=== PATIENT | male | born 1960 | race Caucasian/White ===

== ENCOUNTER → 2016-06-23 | Outpatient (REF) | payer SELFPAY ==
[~2016-06-23] MED LIST: /CLON1TA; /METO25TAB PO; /PANT40TA; /PANT40TA PO; /WARF2TA PO; /WARF5TA PO; ACET-654 PO; ALEV220C2 PO; ASPI32ECTA PO; ATEN25TA; BACT400T PO; CALCITRIOL PO; CELLCEPT PO; CETI10TA; COZA100T; CYCL10CAP PO; DIGO0.126 PO; DOCU100C PO; DOCU100T PO; FERR325T3 PO; FISH1000 PO; FOLI1TAB; FOLI1TAB86 PO; FURO20TA2 PO; GENGRAF PO; LASI80TA; MAGNESIUM PO; MYCO250C PO; PHOS667C PO; PRED10TA2; PRED5TAB; PRED5TAB PO; PRIL20TA2 PO; RENA800T; RENVELA PO; ROCA0.25; SENS60TA PO; SULF400T PO; TAMB100T; VITAMIN D; VITAMIN D2 PO; WARF2.5T38 PO
[2016-06-23 13:51] LABS: INR 2.95
== END ==
LOC: M LAB REF 12:46
PROVIDERS: ATTEND Internal Medicine Nephrology
DX: I48.91 Unspecified atrial fibrillation (principal)

== ENCOUNTER → 2016-08-03 | Outpatient (REF) | payer SELFPAY ==
[2016-08-03 13:48] LABS: INR 2.37
== END ==
LOC: M LAB REF 12:45
PROVIDERS: ATTEND Internal Medicine Nephrology
DX: I48.91 Unspecified atrial fibrillation (principal); Z94.0 Kidney transplant status

== ENCOUNTER → 2016-09-29 | Outpatient (REF) | payer SELFPAY ==
[2016-09-29 14:05] LABS: INR 3.34
== END ==
LOC: M LAB REF 12:50
PROVIDERS: ATTEND Internal Medicine Nephrology
DX: I48.91 Unspecified atrial fibrillation (principal); Z94.0 Kidney transplant status

== ENCOUNTER → 2016-10-06 | Outpatient (CLI) | payer SELFPAY ==
[2016-10-06 19:56] LABS: CALCIUM LEVEL 10.3 MG/DL (8.5-10.1); CREATININE FOR GFR 2.1 MG/DL (0.70-1.30); GLOMERULAR FILTRATION RATE 34.7 (>56); URIC ACID 5.9 MG/DL (3.5-7.2)
== END ==
LOC: M SMT 14:13
PROVIDERS: ATTEND Internal Medicine Cardiovascular Disease
DX: M10.9 Gout, unspecified (principal); I50.9 Heart failure, unspecified

== ENCOUNTER → 2016-11-04 | Outpatient (CLI) | payer SELFPAY ==
--- NOTE | 2016-11-04 15:52 | REP ---
Chest x-ray: Two views. History: Pneumonia. Comparison chest x-ray is from apr 02, 2015. Findings: Cardiomegaly is observed, unchanged. Cardiothoracic ratio is 17.1 cm over 33.3 cm. The aorta is somewhat tortuous and calcific. Pulmonary vasculature is cephalized and somewhat congested. Interstitial markings are increased diffusely and I cannot exclude multiple small bibasilar pulmonary nodules. There are degenerative changes in the thoracic spine. Impression: Cardiomegaly. Pulmonary vascular congestion. Increased interstitial markings, question multiple small pulmonary nodules. Signed by Jefry Mcguire MD 11/04/2016 04:02 P
[2016-11-04 21:07] LABS: INR 6.4
== END ==
LOC: M SMT 15:04
PROVIDERS: ATTEND Internal Medicine Nephrology
DX: J18.9 Pneumonia, unspecified organism (principal); I51.7 Cardiomegaly; I48.91 Unspecified atrial fibrillation; Z94.0 Kidney transplant status

== ENCOUNTER → 2016-11-12 | Outpatient (REF) | payer SELFPAY ==
[2016-11-12 13:54] LABS: INR 1.95
== END ==
LOC: M LAB REF 12:56
PROVIDERS: ATTEND Internal Medicine Nephrology
DX: I48.91 Unspecified atrial fibrillation (principal); Z94.0 Kidney transplant status

== ENCOUNTER → 2016-11-24 | Outpatient (REF) | payer SELFPAY ==
[2016-11-24 13:15] LABS: INR 2.28
== END ==
LOC: M LAB REF 12:56
PROVIDERS: ATTEND Internal Medicine Nephrology
DX: I48.2 Chronic atrial fibrillation (principal); Z51.81 Encounter for therapeutic drug level monitoring; Z79.01 Long term (current) use of anticoagulants

== ENCOUNTER → 2016-12-22 | Outpatient (REF) | payer SELFPAY ==
[2016-12-22 13:38] LABS: INR 2.39
== END ==
LOC: M LAB REF 13:11
PROVIDERS: ATTEND Internal Medicine Nephrology
DX: I48.2 Chronic atrial fibrillation (principal); Z51.81 Encounter for therapeutic drug level monitoring; Z79.01 Long term (current) use of anticoagulants

== ENCOUNTER → 2017-02-23 | Outpatient (REF) | payer SELFPAY | LOC: M LAB REF 14:58 | PROVIDERS: ATTEND Internal Medicine Nephrology | DX: I48.2 Chronic atrial fibrillation (principal); Z48.22 Encounter for aftercare following kidney transplant; Z51.81 Encounter for therapeutic drug level monitoring; Z79.899 Other long term (current) drug therapy ==

== ENCOUNTER → 2017-02-23 | Outpatient (CLI) | payer SELFPAY ==
--- NOTE | 2017-02-23 17:11 | REP ---
Clinical: Chronic shortness of breath. Technique PA and lateral. Comparison: 11/04/2016. Findings: Mediastinum and cardiac silhouette are stable. Cardiomegaly is again suggested. Chronic pulmonary vascular congestion cannot be excluded. Lung motta demonstrate chronic interstitial changes without focal consolidation, effusion, or pneumothorax. Skeletal structures are intact. Impression: Cardiomegaly and chronic appearing changes. No acute cardiopulmonary process. Signed by Alvaro Lee MD 02/23/2017 05:02 P
[2017-02-23 19:31] LABS: INR 2.11
== END ==
LOC: M ADAMS 16:37
PROVIDERS: ATTEND Internal Medicine Nephrology
DX: I48.91 Unspecified atrial fibrillation (principal); I51.7 Cardiomegaly; Z94.0 Kidney transplant status

== ENCOUNTER → 2017-05-18 | Outpatient (REF) | payer SELFPAY ==
[2017-05-18 13:11] LABS: INR 1.6
== END ==
LOC: M LAB REF 12:46
PROVIDERS: ATTEND Internal Medicine Nephrology
DX: Z94.0 Kidney transplant status (principal); I48.91 Unspecified atrial fibrillation

== ENCOUNTER → 2017-06-29 | Outpatient (REF) | payer SELFPAY ==
[2017-06-29 13:20] LABS: INR 2.77; PROTHROMBIN TIME 30.4 SECONDS (12.4-14.5)
== END ==
LOC: M LAB REF 12:51
DX: Z94.0 Kidney transplant status (principal); I48.91 Unspecified atrial fibrillation

== ENCOUNTER → 2017-07-06 | Outpatient (CLI) | payer SELFPAY | LOC: M SLEEP 19:51 | DX: G47.33 Obstructive sleep apnea (adult) (pediatric) (principal) | CPT/HCPCS: 95810 ==

== ENCOUNTER 2017-07-16 10:05 | Inpatient (IN) | payer SELFPAY ==
[~2017-07-16 10:05] MED LIST changes: -/CLON1TA; -/METO25TAB PO; -/PANT40TA; -/PANT40TA PO; -/WARF2TA PO; -/WARF5TA PO; -ACET-654 PO; -ALEV220C2 PO; -ASPI32ECTA PO; -ATEN25TA; -BACT400T PO; -CALCITRIOL PO; -CELLCEPT PO; -CETI10TA; -COZA100T; -CYCL10CAP PO; -DIGO0.126 PO; -DOCU100C PO; -DOCU100T PO; -FERR325T3 PO; -FISH1000 PO; -FOLI1TAB; -FOLI1TAB86 PO; -FURO20TA2 PO; -GENGRAF PO; -LASI80TA; -MAGNESIUM PO; -MYCO250C PO; -PHOS667C PO; -PRED10TA2; -PRED5TAB; -PRED5TAB PO; -PRIL20TA2 PO; -RENA800T; -RENVELA PO; -ROCA0.25; -SENS60TA PO; -SULF400T PO; -TAMB100T; -VITAMIN D; -VITAMIN D2 PO; -WARF2.5T38 PO; +predniSONE 2.5 MG TAB PO
[2017-07-16] MEDS ORDERED: NS 500 ML IV (10:45)
[2017-07-16 11:01] LABS: BASO % 0.6 % (0.0-1.0); EOS # 0.2 10^3/uL (0.0-0.50); EOS % 2.4 % (0.0-3.0); HEMATOCRIT 46.8 % (42.0-52.0); HEMOGLOBIN 15.5 g/dl (14.0-18.0); IMMATURE GRANULOCYTE % 0.3 % (0-0); LYMPH # 0.7 10^3/uL (1.5-4.5); LYMPH % 11.2 % (24.0-44.0); MEAN CORPUSCULAR HEMOGLOBIN 29.4 pg (27.0-33.0); MEAN CORPUSCULAR HGB CONC 33.1 g/dl (32.0-36.5); MEAN CORPUSCULAR VOLUME 88.8 fl (80.0-96.0); MONO # 0.7 10^3/uL (0.0-0.8); MONO % 10.5 % (0.0-5.0); NEUTROPHILS # 4.8 10^3/uL (1.8-7.7); PLATELET COUNT, AUTOMATED 149 10^3/uL (150-450); RED BLOOD COUNT 5.27 10^6/uL (4.30-6.10); RED CELL DISTRIBUTION WIDTH 15.1 % (11.5-14.5); WHITE BLOOD COUNT 6.4 10^3/uL (4.0-10.0)
[2017-07-16 11:12] LABS: INR 2.55; PROTHROMBIN TIME 28.5 SECONDS (12.4-14.5)
[2017-07-16 11:13] LABS: PARTIAL THROMBOPLASTIN TIME 48.5 SECONDS (26.8-37.9)
[2017-07-16 11:21] LABS: AMMONIA 71 uMOL/L (<32)
[2017-07-16 11:27] LABS: ALBUMIN 3.9 GM/DL (3.2-5.2); ALBUMIN/GLOBULIN RATIO 1.03 (1.00-1.93); ALKALINE PHOSPHATASE 166 U/L (45-117); ALT/SGPT 16 U/L (12-78); AMYLASE 52 U/L (25-115); ANION GAP 12 MEQ/L (8-16); AST/SGOT 29 U/L (7-37); BILIRUBIN,DIRECT 2.8 MG/DL (0.0-0.2); BILIRUBIN,TOTAL 4.8 MG/DL (0.2-1.0); BLOOD UREA NITROGEN 71 MG/DL (7-18); CALCIUM LEVEL 9.7 MG/DL (8.5-10.1); CARBON DIOXIDE LEVEL 23 MEQ/L (21-32); CHLORIDE LEVEL 107 MEQ/L (98-107); CPK CREATINE PHOSPHOKINASE 128 U/L (39-308); CREATININE FOR GFR 2.49 MG/DL (0.70-1.30); GLOMERULAR FILTRATION RATE 28.5 (>56); GLUCOSE, FASTING 126 MG/DL (70-100); LIPASE 153 U/L (73-393); POTASSIUM SERUM 3.9 MEQ/L (3.5-5.1); SODIUM LEVEL 142 MEQ/L (136-145); TOTAL PROTEIN 7.7 GM/DL (6.4-8.2); TROPONIN I 0.12 NG/ML (< 0.10)
[2017-07-16 11:28] LABS: CK-MB VALUE MASS 2.8 NG/ML (0.0-3.6); MB/CK RELATIVE INDEX 2.18 (< OR =4)
[2017-07-16 11:37] LABS: LACTIC ACID SEPSIS PROTOCOL 2.4 MMOL/L (0.4-2.0)
[2017-07-16 11:40] LABS: KETONE, URINE AUTO RFX NEGATIVE (NEGATIVE); LEUKOCYTE ESTERASE UR AUTO RFX NEGATIVE (NEGATIVE); NITRITE, URINE AUTO RFX NEGATIVE (NEGATIVE); RBC, URINE AUTO RFX 1 /HPF (0-3); SPECIFIC GRAVITY UR AUTO RFX 1.009 (1.002-1.035); SQUAM EPITHELIAL CELL UR AURFX 0 /HPF (0-6); WBC, URINE AUTO RFX 0 /HPF (0-3)
[2017-07-16] MEDS: NS 1,000 ML IV (11:45)
[2017-07-16 12:08] LABS: DIGOXIN LEVEL 0.7 NG/ML (0.5-2.0)
[2017-07-16] MEDS ORDERED: ONDANSETRON 4MG/2ML VIAL (J2405) IV (14:00)
[2017-07-16 14:17] LABS: NT-PRO BNP 4153 PG/ML (<125)
[2017-07-16 17:26] LABS: CK-MB VALUE MASS 3.2 NG/ML (0.0-3.6); CPK CREATINE PHOSPHOKINASE 106 U/L (39-308); MB/CK RELATIVE INDEX 3.01 (< OR =4); TROPONIN I 0.12 NG/ML (< 0.10)
[2017-07-16] MEDS: LACTULOSE 20 GM/30 ML SYRUP UD PO ×2 (18:30→18:31)
[2017-07-16] MEDS: WARFARIN SOD 2.5 MG TAB PO (18:31)
[2017-07-16] MEDS: ASPIRIN 81 MG ENTERIC TAB PO (18:31)
[2017-07-16] MEDS: FUROSEMIDE 40 MG/4 ML VIAL (J1940) IV (19:47)
[2017-07-16] MEDS: CALCITRIOL 0.25 MCG CAP (S0169) PO (21:42)
[2017-07-16] MEDS: MYCOPHENOLATE MOFETIL 250 MG CAP (J7517) PO (21:43)
[2017-07-16] MEDS: PIPERACILLIN/TAZOBACTAM SOD 2.25 GM in APPROPRIATE DILUENT 1 EA IV (21:59)
[2017-07-16 23:43] LABS: CK-MB VALUE MASS 2.9 NG/ML (0.0-3.6); CPK CREATINE PHOSPHOKINASE 100 U/L (39-308); TROPONIN I 0.18 NG/ML (< 0.10)
[2017-07-17] MEDS: LACTULOSE 20 GM/30 ML SYRUP UD PO ×4 (00:02→17:01)
[2017-07-17] MEDS: FUROSEMIDE 40 MG/4 ML VIAL (J1940) IV ×2 (02:41→08:55)
[2017-07-17] MEDS: PIPERACILLIN/TAZOBACTAM SOD 2.25 GM in APPROPRIATE DILUENT 1 EA IV ×4 (02:46→20:11)
[2017-07-17 05:19] LABS: BASO % 0.4 % (0.0-1.0); EOS # 0.2 10^3/uL (0.0-0.50); EOS % 2.3 % (0.0-3.0); HEMATOCRIT 43.4 % (42.0-52.0); HEMOGLOBIN 14.2 g/dl (14.0-18.0); IMMATURE GRANULOCYTE % 0.1 % (0-0); LYMPH # 0.7 10^3/uL (1.5-4.5); MEAN CORPUSCULAR HEMOGLOBIN 28.9 pg (27.0-33.0); MEAN CORPUSCULAR HGB CONC 32.7 g/dl (32.0-36.5); MEAN CORPUSCULAR VOLUME 88.2 fl (80.0-96.0); MONO # 0.6 10^3/uL (0.0-0.8); MONO % 8.9 % (0.0-5.0); NEUTROPHILS # 5.5 10^3/uL (1.8-7.7); NEUTROPHILS % 78.3 % (36.0-66.0); PLATELET COUNT, AUTOMATED 146 10^3/uL (150-450); RED BLOOD COUNT 4.92 10^6/uL (4.30-6.10); RED CELL DISTRIBUTION WIDTH 15.2 % (11.5-14.5)
[2017-07-17 05:35] LABS: AMMONIA 121 uMOL/L (<32)
[2017-07-17 05:38] LABS: ALBUMIN 3.6 GM/DL (3.2-5.2); ALBUMIN/GLOBULIN RATIO 0.88 (1.00-1.93); ALKALINE PHOSPHATASE 154 U/L (45-117); ALT/SGPT 16 U/L (12-78); ANION GAP 12 MEQ/L (8-16); AST/SGOT 21 U/L (7-37); BILIRUBIN,TOTAL 4.8 MG/DL (0.2-1.0); BLOOD UREA NITROGEN 66 MG/DL (7-18); CALCIUM LEVEL 9.7 MG/DL (8.5-10.1); CARBON DIOXIDE LEVEL 20 MEQ/L (21-32); CHLORIDE LEVEL 109 MEQ/L (98-107); CREATININE FOR GFR 2.42 MG/DL (0.70-1.30); GLOMERULAR FILTRATION RATE 29.5 (>56); GLUCOSE, FASTING 101 MG/DL (70-100); POTASSIUM SERUM 3.9 MEQ/L (3.5-5.1); SODIUM LEVEL 141 MEQ/L (136-145); TOTAL PROTEIN 7.7 GM/DL (6.4-8.2)
[2017-07-17 05:41] LABS: INR 2.47; PROTHROMBIN TIME 27.7 SECONDS (12.4-14.5)
[2017-07-17 05:53] LABS: URIC ACID 7.6 MG/DL (3.5-7.2)
[2017-07-17] MEDS: MYCOPHENOLATE MOFETIL 250 MG CAP (J7517) PO ×2 (08:54→20:10)
[2017-07-17] MEDS: PANTOPRAZOLE 20 MG TAB PO (08:54)
[2017-07-17] MEDS: ASPIRIN 81 MG ENTERIC TAB PO (08:54)
[2017-07-17] MEDS: predniSONE 5 MG TAB PO (08:55)
[2017-07-17] MEDS: FEBUXOSTAT 40 MG TABLET (ULORIC) PO ×2 (09:54→10:04)
[2017-07-17] MEDS: rifAXIMin 550 MG TAB (XIFAXAN) PO ×2 (11:59→20:10)
[2017-07-17] MEDS: NEORAL 25 MG CAP (J7515) PO ×2 (11:59→20:10)
[2017-07-17] MEDS ORDERED: FUROSEMIDE 20 MG TAB PO (17:00)
[2017-07-17] MEDS: WARFARIN SOD 5 MG TAB PO (17:01)
[2017-07-17] MEDS: CALCITRIOL 0.25 MCG CAP (S0169) PO (20:10)
[2017-07-18] MEDS: LACTULOSE 20 GM/30 ML SYRUP UD PO ×3 (00:44→11:22)
[2017-07-18] MEDS: PIPERACILLIN/TAZOBACTAM SOD 2.25 GM in APPROPRIATE DILUENT 1 EA IV ×2 (02:01→08:39)
[2017-07-18 05:12] LABS: BASO % 0.6 % (0.0-1.0); EOS # 0.2 10^3/uL (0.0-0.50); EOS % 3.3 % (0.0-3.0); HEMATOCRIT 45.8 % (42.0-52.0); IMMATURE GRANULOCYTE % 0.3 % (0-0); LYMPH # 0.8 10^3/uL (1.5-4.5); LYMPH % 11.8 % (24.0-44.0); MEAN CORPUSCULAR HGB CONC 32.8 g/dl (32.0-36.5); MEAN CORPUSCULAR VOLUME 88.4 fl (80.0-96.0); MONO # 0.7 10^3/uL (0.0-0.8); MONO % 10.8 % (0.0-5.0); NEUTROPHILS % 73.2 % (36.0-66.0); PLATELET COUNT, AUTOMATED 159 10^3/uL (150-450); RED BLOOD COUNT 5.18 10^6/uL (4.30-6.10); RED CELL DISTRIBUTION WIDTH 15.3 % (11.5-14.5); WHITE BLOOD COUNT 6.9 10^3/uL (4.0-10.0)
[2017-07-18 05:27] LABS: AMMONIA 22 uMOL/L (<32)
[2017-07-18 05:27] LABS: INR 2.48; PROTHROMBIN TIME 27.8 SECONDS (12.4-14.5)
[2017-07-18 05:30] LABS: ALBUMIN 3.8 GM/DL (3.2-5.2); ALBUMIN/GLOBULIN RATIO 0.86 (1.00-1.93); ALKALINE PHOSPHATASE 156 U/L (45-117); ALT/SGPT 15 U/L (12-78); ANION GAP 11 MEQ/L (8-16); AST/SGOT 25 U/L (7-37); BILIRUBIN,TOTAL 5.6 MG/DL (0.2-1.0); BLOOD UREA NITROGEN 62 MG/DL (7-18); CALCIUM LEVEL 10.3 MG/DL (8.5-10.1); CARBON DIOXIDE LEVEL 23 MEQ/L (21-32); CHLORIDE LEVEL 108 MEQ/L (98-107); CREATININE FOR GFR 2.53 MG/DL (0.70-1.30); GLUCOSE, FASTING 122 MG/DL (70-100); POTASSIUM SERUM 3.8 MEQ/L (3.5-5.1); SODIUM LEVEL 142 MEQ/L (136-145); TOTAL PROTEIN 8.2 GM/DL (6.4-8.2)
[2017-07-18] MEDS: PANTOPRAZOLE 20 MG TAB PO (08:40)
[2017-07-18] MEDS: NEORAL 25 MG CAP (J7515) PO (08:40)
[2017-07-18] MEDS: MYCOPHENOLATE MOFETIL 250 MG CAP (J7517) PO (08:40)
[2017-07-18] MEDS: ASPIRIN 81 MG ENTERIC TAB PO (08:41)
[2017-07-18] MEDS: rifAXIMin 550 MG TAB (XIFAXAN) PO (08:41)
[2017-07-18] MEDS: DIGOXIN 0.25 MG TAB PO (08:41)
[2017-07-18] MEDS: ALLOPURINOL 300 MG TAB PO (08:41)
[2017-07-18] MEDS: predniSONE 5 MG TAB PO (08:41)
[2017-07-18 10:53] LABS: HEPATITIS B SURFACE ANTIGEN NEGATIVE (NEGATIVE)
[2017-07-18 11:16] LABS: HEPATITIS B CORE ANTIBODY IGM NEGATIVE (NEGATIVE)
[2017-07-18 11:18] LABS: HEPATITIS A ANTIBODY IGM NEGATIVE (NEGATIVE); HIV 1&2 SCREEN CENTAUR NEGATIVE (NEGATIVE)
[2017-07-20 14:13] LABS: JC VIRUS DNA PCR WHOLE BLOOD Negative (Negative)
[2017-07-21 00:07] LABS: ANA (HEP2) Negative (.); ANCA-ATYPICAL <1:20 titer (Neg:<1:20); ANTI-MITOCHONDRIAL ANTIBODY 7.4 Units (0.0-20.0); ANTINUCLEAR ANTIBODIES DIRECT Negative (Negative); CYTOPLASMIC NEUTROP AB ANCA-C <1:20 titer (Neg:<1:20); PERINUCLEAR AB ANCA-P <1:20 titer (Neg:<1:20)
[2017-07-21 00:07] LABS: CYCLOSPORINE LABCORP 181 ng/mL (100-400)
== END 2017-07-18 13:00 | disposition home or self-care (01) | DRG 279 ==
LOC: M ED 10:05 → M ED INP 14:10 → M PCU 17:45
DX: K72.90 Hepatic failure, unspecified without coma (principal); I50.33 Acute on chronic diastolic (congestive) heart failure; N17.9 Acute kidney failure, unspecified; E87.2 Acidosis; N18.3 Chronic kidney disease, stage 3 (moderate); I50.810 Right heart failure, unspecified; I13.0 Hypertensive heart and chronic kidney disease with heart failure and stage 1 through stage 4 chronic kidney disease, or unspecified chronic kidney disease; I48.2 Chronic atrial fibrillation; N02.8 Recurrent and persistent hematuria with other morphologic changes; Z94.0 Kidney transplant status; I25.10 Atherosclerotic heart disease of native coronary artery without angina pectoris; E80.6 Other disorders of bilirubin metabolism; K21.9 Gastro-esophageal reflux disease without esophagitis; M10.9 Gout, unspecified; Z79.01 Long term (current) use of anticoagulants; Z88.8 Allergy status to other drugs, medicaments and biological substances; Z79.82 Long term (current) use of aspirin; Z79.52 Long term (current) use of systemic steroids; Z79.899 Other long term (current) drug therapy; Z86.73 Personal history of transient ischemic attack (TIA), and cerebral infarction without residual deficits

== ENCOUNTER → 2017-07-22 | Outpatient (REF) | payer SELFPAY ==
[2017-07-22 14:08] LABS: INR 3.14; PROTHROMBIN TIME 33.7 SECONDS (12.4-14.5)
[2017-07-22 14:10] LABS: ALBUMIN 3.9 GM/DL (3.2-5.2); ALBUMIN/GLOBULIN RATIO 1.05 (1.00-1.93); ALKALINE PHOSPHATASE 166 U/L (45-117); ALT/SGPT 20 U/L (12-78); AST/SGOT 27 U/L (7-37); BILIRUBIN,DIRECT 2.6 MG/DL (0.0-0.2); BILIRUBIN,TOTAL 3.9 MG/DL (0.2-1.0); TOTAL PROTEIN 7.6 GM/DL (6.4-8.2)
== END ==
LOC: M LAB REF 13:12
DX: Z94.0 Kidney transplant status (principal); I48.91 Unspecified atrial fibrillation; N18.3 Chronic kidney disease, stage 3 (moderate)

== ENCOUNTER → 2017-08-01 | Outpatient (REF) | payer SELFPAY ==
[2017-08-01 17:28] LABS: INR 1.98; PROTHROMBIN TIME 23.1 SECONDS (12.4-14.5)
[2017-08-01 17:56] LABS: ALBUMIN/GLOBULIN RATIO 1.05 (1.00-1.93); ALKALINE PHOSPHATASE 173 U/L (45-117); ALT/SGPT 19 U/L (12-78); AST/SGOT 26 U/L (7-37); BILIRUBIN,DIRECT 2.8 MG/DL (0.0-0.2); BILIRUBIN,TOTAL 4.7 MG/DL (0.2-1.0); TOTAL PROTEIN 7.8 GM/DL (6.4-8.2)
== END ==
LOC: M LAB REF 16:42
DX: Z94.0 Kidney transplant status (principal); I48.91 Unspecified atrial fibrillation; N18.3 Chronic kidney disease, stage 3 (moderate)

== ENCOUNTER → 2017-10-10 | Outpatient (REF) | payer MEDICARE, SELFPAY ==
[2017-10-10 17:17] LABS: TOTAL VOLUME, URINE 510 ML
[2017-10-10 18:15] LABS: ALBUMIN 3.8 GM/DL (3.2-5.2); ANION GAP 12 MEQ/L (8-16); BLOOD UREA NITROGEN 54 MG/DL (7-18); CALCIUM LEVEL 9.8 MG/DL (8.5-10.1); CARBON DIOXIDE LEVEL 26 MEQ/L (21-32); CHLORIDE LEVEL 103 MEQ/L (98-107); CREATININE FOR GFR 3.29 MG/DL (0.70-1.30); GLOMERULAR FILTRATION RATE 20.6 (>56); GLUCOSE, FASTING 132 MG/DL (70-100); PHOSPHORUS LEVEL 3.6 MG/DL (2.5-4.9); POTASSIUM SERUM 4.1 MEQ/L (3.5-5.1); SODIUM LEVEL 141 MEQ/L (136-145)
[2017-10-11 02:48] LABS: CREATININE CLEARANCE, URINE 31.1 ML/MIN (85-125); CREATININE, SERUM 3.3 MG/DL (0.6-1.3)
== END ==
LOC: M LAB REF 17:02
DX: N17.9 Acute kidney failure, unspecified (principal); Z94.0 Kidney transplant status
CPT/HCPCS: 82575

== ENCOUNTER → 2017-10-25 | Outpatient (CLI) | payer MEDICARE | LOC: M RAD 07:47 | DX: I87.311 Chronic venous hypertension (idiopathic) with ulcer of right lower extremity (principal) | CPT/HCPCS: 93971 ==

== ENCOUNTER → 2017-12-12 | Outpatient (CLI) | payer MEDICARE | LOC: M RAD 09:57 | DX: Z01.818 Encounter for other preprocedural examination (principal); N18.6 End stage renal disease (principal); Z99.2 Dependence on renal dialysis | CPT/HCPCS: G0365 ==

== ENCOUNTER → 2018-01-12 | Outpatient (CLI) | payer MEDICARE ==
[~2018-01-12] MED LIST changes: +ISOVUE-300 61% 50ML VIAL (Q9967) As Ordered; +MIDAZOLAM INJ 2 MG/2 ML VIAL (J2250) As Ordered; +fentaNYL 100 MCG/2 ML INJECTION (J3010) As Ordered; -predniSONE 2.5 MG TAB PO
== END | disposition home or self-care (01) ==
LOC: M IRPRO 08:04
DX: T82.858A Stenosis of other vascular prosthetic devices, implants and grafts, initial encounter (principal); N18.6 End stage renal disease
CPT/HCPCS: 36902

== ENCOUNTER 2018-01-16 20:01 | Observation (INO) | payer MEDICARE ==
[2018-01-16] MEDS: IPRATROPIUM 0.5MG/ALBUTEROL 2.5MG INH SOL UD 3ML (DUONEB)(J7620) NEB ×2 (21:18)
[2018-01-16 21:41] LABS: BASO % 0.5 % (0.0-1.0); EOS # 0.3 10^3/uL (0.0-0.50); EOS % 3.4 % (0.0-3.0); HEMATOCRIT 36.4 % (42.0-52.0); IMMATURE GRANULOCYTE % 0.4 % (0-3.0); LYMPH # 0.7 10^3/uL (1.5-4.5); LYMPH % 9.3 % (24.0-44.0); MEAN CORPUSCULAR HEMOGLOBIN 30.3 pg (27.0-33.0); MEAN CORPUSCULAR VOLUME 91.9 fl (80.0-96.0); MONO # 0.8 10^3/uL (0.0-0.8); MONO % 11.1 % (0.0-5.0); NEUTROPHILS # 5.7 10^3/uL (1.8-7.7); NEUTROPHILS % 75.3 % (36.0-66.0); PLATELET COUNT, AUTOMATED 214 10^3/uL (150-450); RED BLOOD COUNT 3.96 10^6/uL (4.30-6.10); RED CELL DISTRIBUTION WIDTH 15.3 % (11.5-14.5); WHITE BLOOD COUNT 7.6 10^3/uL (4.0-10.0)
[2018-01-16 21:43] LABS: VENOUS BASE EXCESS 3.2 (-2.0-2.0); VENOUS HCO3 26.7 MEQ/L (23.0-27.0); VENOUS O2 SATURATION 78.4 % (60.0-80.0); VENOUS PARTIAL PRESSURE CO2 36.9 mmHg (38.0-50.0); VENOUS PARTIAL PRESSURE O2 43.7 mmHg (30.0-50.0); VENOUS PH 7.477 UNITS (7.330-7.430); VENOUS STANDARD HCO3 26.9 MEQ/L; VENOUS TOTAL CO2 27.8 MEQ/L (24.0-28.0)
[2018-01-16 21:49] LABS: INR 2.03; PROTHROMBIN TIME 23.3 SECONDS (12.1-14.4)
[2018-01-16 22:06] LABS: ANION GAP 12 MEQ/L (8-16); BLOOD UREA NITROGEN 31 MG/DL (7-18); CALCIUM LEVEL 8.6 MG/DL (8.5-10.1); CARBON DIOXIDE LEVEL 26 MEQ/L (21-32); CHLORIDE LEVEL 100 MEQ/L (98-107); CPK CREATINE PHOSPHOKINASE 129 U/L (39-308); GLOMERULAR FILTRATION RATE 16.4 (>56); GLUCOSE, FASTING 100 MG/DL (70-100); POTASSIUM SERUM 3.6 MEQ/L (3.5-5.1); SODIUM LEVEL 138 MEQ/L (136-145); TROPONIN I 0.18 NG/ML (< 0.10)
[2018-01-16 22:17] LABS: CK-MB VALUE MASS 2.7 NG/ML (<3.6); DIGOXIN LEVEL 0.4 NG/ML (0.5-2.0); MB/CK RELATIVE INDEX 2.09 (< OR =4); NT-PRO BNP 7285 PG/ML (<125)
[2018-01-17 00:49] LABS: CK-MB VALUE MASS 2.4 NG/ML (<3.6); CPK CREATINE PHOSPHOKINASE 120 U/L (39-308); TROPONIN I 0.18 NG/ML (< 0.10)
[2018-01-17] MEDS ORDERED: LACTULOSE 20 GM/30 ML SYRUP UD PO ×2 (03:00)
[2018-01-17] MEDS ORDERED: IPRATROPIUM 0.5MG/ALBUTEROL 2.5MG INH SOL UD 3ML (DUONEB)(J7620) NEB ×2 (03:00)
[2018-01-17] MEDS ORDERED: PHYTONADIONE 5 MG TAB PO ×2 (03:00)
[2018-01-17 04:06] LABS: ALBUMIN 3.3 GM/DL (3.2-5.2); ALBUMIN/GLOBULIN RATIO 0.63 (1.00-1.93); ALKALINE PHOSPHATASE 217 U/L (45-117); ALT/SGPT 24 U/L (12-78); AST/SGOT 24 U/L (7-37); BILIRUBIN,DIRECT 1.2 MG/DL (0.0-0.2); BILIRUBIN,TOTAL 2.4 MG/DL (0.2-1.0); DIGOXIN LEVEL 0.4 NG/ML (0.5-2.0); TOTAL PROTEIN 8.5 GM/DL (6.4-8.2)
[2018-01-17] MEDS: ACETAMINOPHEN TAB 650MG DOSE (2X325MG) PO ×4 (04:28→20:25)
[2018-01-17] MEDS: FEBUXOSTAT 40 MG TABLET (ULORIC) PO ×2 (08:14)
[2018-01-17] MEDS: predniSONE 5 MG TAB PO ×2 (08:14)
[2018-01-17] MEDS: FOLIC ACID 1 MG TAB PO ×2 (08:14)
[2018-01-17] MEDS: LANTHANUM CARBONATE 500 MG CHEW TABLET PO ×6 (08:14→16:49)
[2018-01-17] MEDS: MYCOPHENOLATE MOFETIL 250 MG CAP (J7517) PO ×4 (08:15→20:25)
[2018-01-17] MEDS: ASPIRIN 81 MG ENTERIC TAB PO ×2 (08:15)
[2018-01-17 08:44] LABS: HEMATOCRIT 34.7 % (42.0-52.0); HEMOGLOBIN 11.3 g/dl (13.5-17.5); MEAN CORPUSCULAR HEMOGLOBIN 30.1 pg (27.0-33.0); MEAN CORPUSCULAR HGB CONC 32.6 g/dl (32.0-36.5); MEAN CORPUSCULAR VOLUME 92.5 fl (80.0-96.0); PLATELET COUNT, AUTOMATED 214 10^3/uL (150-450); RED BLOOD COUNT 3.75 10^6/uL (4.30-6.10); RED CELL DISTRIBUTION WIDTH 15.4 % (11.5-14.5); WHITE BLOOD COUNT 6.9 10^3/uL (4.0-10.0)
[2018-01-17 09:08] LABS: LDH LACTATE DEHYDROGENASE 343 U/L (87-241)
[2018-01-17 09:21] LABS: CPK CREATINE PHOSPHOKINASE 122 U/L (39-308)
[2018-01-17 09:52] LABS: CK-MB VALUE MASS 2.3 NG/ML (<3.6); MB/CK RELATIVE INDEX 1.88 (< OR =4); TROPONIN I 0.18 NG/ML (< 0.10)
[2018-01-17] MEDS: HEPARIN 1,000 UNITS/ML 10ML VIAL (FOR RADIOLOGY& DIALYSIS ONLY) XX ×2 (13:45)
[2018-01-17] MEDS: HEPARIN 1,000 UNITS/ML 10ML VIAL (FOR RADIOLOGY& DIALYSIS ONLY) IV ×2 (13:45)
[2018-01-17] MEDS: WARFARIN SOD 5 MG TAB PO ×2 (16:52)
[2018-01-18] MEDS: ACETAMINOPHEN TAB 650MG DOSE (2X325MG) PO ×2 (02:12)
[2018-01-18] MEDS: FEBUXOSTAT 40 MG TABLET (ULORIC) PO ×2 (06:35)
[2018-01-18] MEDS: MYCOPHENOLATE MOFETIL 250 MG CAP (J7517) PO ×4 (06:35→21:41)
[2018-01-18] MEDS: FOLIC ACID 1 MG TAB PO ×2 (06:35)
[2018-01-18] MEDS: ASPIRIN 81 MG ENTERIC TAB PO ×2 (06:35)
[2018-01-18 07:08] LABS: INR 2.13; PROTHROMBIN TIME 24.3 SECONDS (12.1-14.4)
[2018-01-18 07:17] LABS: ALBUMIN 3.1 GM/DL (3.2-5.2); ALBUMIN/GLOBULIN RATIO 0.65 (1.00-1.93); ALKALINE PHOSPHATASE 201 U/L (45-117); ALT/SGPT 22 U/L (12-78); ANION GAP 14 MEQ/L (8-16); AST/SGOT 22 U/L (7-37); BILIRUBIN,TOTAL 1.7 MG/DL (0.2-1.0); BLOOD UREA NITROGEN 52 MG/DL (7-18); CALCIUM LEVEL 7.9 MG/DL (8.5-10.1); CARBON DIOXIDE LEVEL 21 MEQ/L (21-32); CHLORIDE LEVEL 98 MEQ/L (98-107); CREATININE FOR GFR 6.06 MG/DL (0.70-1.30); GLOMERULAR FILTRATION RATE 10.2 (>56); GLUCOSE, FASTING 104 MG/DL (70-100); POTASSIUM SERUM 3.9 MEQ/L (3.5-5.1); SODIUM LEVEL 133 MEQ/L (136-145); TOTAL PROTEIN 7.9 GM/DL (6.4-8.2)
[2018-01-18 07:21] LABS: ALBUMIN 3.2 GM/DL (3.2-5.2); ALBUMIN/GLOBULIN RATIO 0.76 (1.00-1.93); ALKALINE PHOSPHATASE 203 U/L (45-117); ALT/SGPT 21 U/L (12-78); AST/SGOT 22 U/L (7-37); BILIRUBIN,DIRECT 1.1 MG/DL (0.0-0.2); BILIRUBIN,TOTAL 1.7 MG/DL (0.2-1.0); TOTAL PROTEIN 7.4 GM/DL (6.4-8.2)
[2018-01-18] MEDS: LANTHANUM CARBONATE 500 MG CHEW TABLET PO ×6 (07:50→16:32)
[2018-01-18 08:06] LABS: HAPTOGLOBIN 108 mg/dL (34-200)
[2018-01-18] MEDS: HEPARIN 1,000 UNITS/ML 10ML VIAL (FOR RADIOLOGY& DIALYSIS ONLY) IV ×2 (11:15)
[2018-01-18] MEDS: HEPARIN 1,000 UNITS/ML 10ML VIAL (FOR RADIOLOGY& DIALYSIS ONLY) XX ×2 (11:15)
[2018-01-18] MEDS: WARFARIN SOD 4 MG TAB PO ×2 (16:32)
[2018-01-18 18:49] LABS: MAGNESIUM LEVEL 2.8 MG/DL (1.8-2.4)
[2018-01-19 06:56] LABS: HEMATOCRIT 35.4 % (42.0-52.0); HEMOGLOBIN 11.6 g/dl (13.5-17.5); MEAN CORPUSCULAR HEMOGLOBIN 30.3 pg (27.0-33.0); MEAN CORPUSCULAR HGB CONC 32.8 g/dl (32.0-36.5); MEAN CORPUSCULAR VOLUME 92.4 fl (80.0-96.0); PLATELET COUNT, AUTOMATED 246 10^3/uL (150-450); RED BLOOD COUNT 3.83 10^6/uL (4.30-6.10); RED CELL DISTRIBUTION WIDTH 15.4 % (11.5-14.5); WHITE BLOOD COUNT 7.6 10^3/uL (4.0-10.0)
[2018-01-19 07:11] LABS: INR 2.03; PROTHROMBIN TIME 23.3 SECONDS (12.1-14.4)
[2018-01-19 07:16] LABS: ALBUMIN 3.1 GM/DL (3.2-5.2); ALBUMIN/GLOBULIN RATIO 0.67 (1.00-1.93); ALKALINE PHOSPHATASE 204 U/L (45-117); ALT/SGPT 21 U/L (12-78); ANION GAP 13 MEQ/L (8-16); AST/SGOT 23 U/L (7-37); BILIRUBIN,TOTAL 1.8 MG/DL (0.2-1.0); BLOOD UREA NITROGEN 34 MG/DL (7-18); CALCIUM LEVEL 8.5 MG/DL (8.5-10.1); CARBON DIOXIDE LEVEL 22 MEQ/L (21-32); CHLORIDE LEVEL 99 MEQ/L (98-107); CREATININE FOR GFR 4.76 MG/DL (0.70-1.30); GLOMERULAR FILTRATION RATE 13.5 (>56); GLUCOSE, FASTING 111 MG/DL (70-100); POTASSIUM SERUM 3.8 MEQ/L (3.5-5.1); SODIUM LEVEL 134 MEQ/L (136-145); TOTAL PROTEIN 7.7 GM/DL (6.4-8.2)
[2018-01-19] MEDS: predniSONE 5 MG TAB PO ×2 (08:48)
[2018-01-19] MEDS: FOLIC ACID 1 MG TAB PO ×2 (08:48)
[2018-01-19] MEDS: FEBUXOSTAT 40 MG TABLET (ULORIC) PO ×2 (08:48)
[2018-01-19] MEDS: ASPIRIN 81 MG ENTERIC TAB PO ×2 (08:48)
[2018-01-19] MEDS: LANTHANUM CARBONATE 500 MG CHEW TABLET PO ×2 (08:49)
[2018-01-19] MEDS: DIGOXIN 0.25 MG TAB PO ×2 (08:49)
[2018-01-19] MEDS: MYCOPHENOLATE MOFETIL 250 MG CAP (J7517) PO ×2 (08:49)
[2018-01-19] MEDS ORDERED: WARFARIN SOD 5 MG TAB PO ×2 (17:00)
== END 2018-01-19 11:30 | disposition home or self-care (01) ==
LOC: M ED INP 20:02 → M ED 20:01 → M MS5PR 01-17 04:07
DX: R06.09 Other forms of dyspnea (principal); M62.838 Other muscle spasm; E05.80 Other thyrotoxicosis without thyrotoxic crisis or storm; R79.89 Other specified abnormal findings of blood chemistry; N18.6 End stage renal disease; Z79.899 Other long term (current) drug therapy; K74.69 Other cirrhosis of liver; R17 Unspecified jaundice; I48.91 Unspecified atrial fibrillation; Z79.01 Long term (current) use of anticoagulants; Z88.8 Allergy status to other drugs, medicaments and biological substances
CPT/HCPCS: J7517

== ENCOUNTER 2018-01-31 08:37 | Inpatient (IN) | payer MEDICARE ==
[2018-01-31] MEDS: GLUCAGON FOR INJ 1 MG VIAL (J1610) IM (08:49)
[2018-01-31] MEDS ORDERED: GLUCAGON FOR INJ 1 MG VIAL (J1610) As Ordered (08:50)
[2018-01-31] MEDS ORDERED: DEXTROSE 50% 50 ML SYRINGE As Ordered (08:52)
[2018-01-31] MEDS: DEXTROSE 50% 50 ML SYRINGE IV (08:55)
[2018-01-31 09:07] LABS: BEDSIDE GLUCOSE 36 MG/DL (70-105)
[2018-01-31 09:13] LABS: VENOUS BASE EXCESS -5.1 (-2.0-2.0); VENOUS HCO3 15.9 MEQ/L (23.0-27.0); VENOUS O2 SATURATION 96.1 % (60.0-80.0); VENOUS PARTIAL PRESSURE O2 77.9 mmHg (30.0-50.0); VENOUS PH 7.496 UNITS (7.330-7.430); VENOUS STANDARD HCO3 20.3 MEQ/L; VENOUS TOTAL CO2 16.5 MEQ/L (24.0-28.0)
[2018-01-31 09:17] LABS: BASO % 0.1 % (0.0-1.0); EOS % 0.1 % (0.0-3.0); HEMATOCRIT 37.9 % (42.0-52.0); HEMOGLOBIN 12.6 g/dl (13.5-17.5); IMMATURE GRANULOCYTE % 0.2 % (0-3.0); LYMPH # 0.4 10^3/uL (1.5-4.5); LYMPH % 4.4 % (24.0-44.0); MEAN CORPUSCULAR HGB CONC 33.2 g/dl (32.0-36.5); MEAN CORPUSCULAR VOLUME 87.3 fl (80.0-96.0); MONO # 0.1 10^3/uL (0.0-0.8); MONO % 0.6 % (0.0-5.0); NEUTROPHILS # 9.6 10^3/uL (1.8-7.7); NEUTROPHILS % 94.6 % (36.0-66.0); PLATELET COUNT, AUTOMATED 288 10^3/uL (150-450); RED BLOOD COUNT 4.34 10^6/uL (4.30-6.10); RED CELL DISTRIBUTION WIDTH 15.9 % (11.5-14.5); WHITE BLOOD COUNT 10.1 10^3/uL (4.0-10.0)
[2018-01-31 09:25] LABS: BEDSIDE GLUCOSE 88 MG/DL (70-105)
[2018-01-31 09:28] LABS: PROTHROMBIN TIME 51.3 SECONDS (12.1-14.4)
[2018-01-31 09:35] LABS: AMMONIA 132 uMOL/L (<32)
[2018-01-31 09:40] LABS: ALBUMIN 3.1 GM/DL (3.2-5.2); ALBUMIN/GLOBULIN RATIO 0.69 (1.00-1.93); ALKALINE PHOSPHATASE 168 U/L (45-117); ALT/SGPT 22 U/L (12-78); ANION GAP 21 MEQ/L (8-16); AST/SGOT 16 U/L (7-37); BILIRUBIN,DIRECT 1.4 MG/DL (0.0-0.2); BILIRUBIN,TOTAL 2.1 MG/DL (0.2-1.0); BLOOD UREA NITROGEN 74 MG/DL (7-18); CALCIUM LEVEL 8.4 MG/DL (8.5-10.1); CARBON DIOXIDE LEVEL 16 MEQ/L (21-32); CHLORIDE LEVEL 99 MEQ/L (98-107); CPK CREATINE PHOSPHOKINASE 81 U/L (39-308); CREATININE FOR GFR 7.93 MG/DL (0.70-1.30); GLOMERULAR FILTRATION RATE 7.5 (>56); GLUCOSE, FASTING 215 MG/DL (70-100); POTASSIUM SERUM 4.3 MEQ/L (3.5-5.1); SODIUM LEVEL 136 MEQ/L (136-145); TOTAL PROTEIN 7.6 GM/DL (6.4-8.2); TROPONIN I 0.25 NG/ML (< 0.10)
[2018-01-31 09:42] LABS: LACTIC ACID SEPSIS PROTOCOL 4.1 MMOL/L (0.4-2.0)
[2018-01-31 09:44] LABS: ABG BASE EXCESS -4.6 (-2.0-2.0); ABG HCO3 14.7 MEQ/L (22.0-26.0); ABG O2 SATURATION 92.4 % (95.0-99.0); ABG PARTIAL PRESSURE O2 59.7 mmHg (75.0-100.0); ABG STANDARD HCO3 20.6 MEQ/L (22.0-26.0); ABG TOTAL CO2 15.2 MEQ/L (22.0-29.0)
[2018-01-31 09:48] LABS: ABG PARTIAL PRESSURE CO2 16.8 mmHg (35.0-45.0)
[2018-01-31 09:50] LABS: CK-MB VALUE MASS 4.1 NG/ML (<3.6); DIGOXIN LEVEL 0.5 NG/ML (0.5-2.0); MB/CK RELATIVE INDEX 5.06 (< OR =4); OSMOLALITY SERUM 309 MOSM/KG (275-295)
[2018-01-31 09:59] LABS: INR 5.48
[2018-01-31] MEDS: LACTULOSE 20 GM/30 ML SYRUP UD PR (10:00)
[2018-01-31 10:07] LABS: MAGNESIUM LEVEL 2.3 MG/DL (1.8-2.4)
[2018-01-31] MEDS: cefTRIAXone SOD 2 GM in D5W MINI-BAG PLUS 50 ML IV (10:30)
[2018-01-31] MEDS: DILUENT IV (10:30)
[2018-01-31] MEDS: NS IV (10:30)
[2018-01-31 10:45] LABS: BEDSIDE GLUCOSE 50 MG/DL (70-105)
[2018-01-31] MEDS: ACETAMINOPHEN 650 MG SUPP PR (10:45)
[2018-01-31] MEDS ORDERED: LIDOCAINE 1% MDV 20ML VIAL As Ordered (10:47)
[2018-01-31 10:48] LABS: BEDSIDE GLUCOSE 78 MG/DL (70-105)
[2018-01-31] MEDS ORDERED: D10W/0.45% SODIUM CHLORIDE 1,000 ML IV (11:00)
[2018-01-31] MEDS: ETOMIDATE INJ 20MG/10ML VIAL IV (11:12)
[2018-01-31] MEDS: SUCCINYLCHOLINE INJ 200 MG/10 ML VIAL (J0330) IV (11:16)
[2018-01-31] MEDS: MIDAZOLAM INJ 2 MG/2 ML VIAL (J2250) IV (11:28)
[2018-01-31] MEDS ORDERED: MIDAZOLAM HCL 50 MG in D5W 40 ML IV (11:30)
[2018-01-31] MEDS: MIDAZOLAM HCL 100 MG in D5W 80 ML IV ×2 (11:30→11:32)
[2018-01-31] MEDS ORDERED: REFRIGERATOR IV KEYS XX ×2 (11:30→12:15)
[2018-01-31] MEDS ORDERED: NOREPINEPHRINE BITARTRATE 8 MG in D5W 492 ML IV ×2 (11:45→12:09)
[2018-01-31 11:59] LABS: ABG BASE EXCESS -13.1 (-2.0-2.0); ABG HCO3 14.5 MEQ/L (22.0-26.0); ABG PARTIAL PRESSURE CO2 39.4 mmHg (35.0-45.0); ABG PARTIAL PRESSURE O2 55.5 mmHg (75.0-100.0); ABG STANDARD HCO3 14.1 MEQ/L (22.0-26.0); ABG TOTAL CO2 15.7 MEQ/L (22.0-29.0)
[2018-01-31] MEDS: HumaLOG INSULIN (NovoLOG) PER UNIT SC ×2 (12:00→18:00)
[2018-01-31] MEDS ORDERED: NS 1,000 ML IV (12:00)
[2018-01-31] MEDS: NOREPINEPHRINE BITARTRATE 8 MG in D5W 492 ML IV ×3 (12:00→19:33)
[2018-01-31 12:06] LABS: ABG pH (ARTERIAL) 7.184 UNITS (7.350-7.450)
[2018-01-31] MEDS ORDERED: MIDAZOLAM INJ 2 MG/2 ML VIAL (J2250) IV (12:15)
[2018-01-31] MEDS ORDERED: GLUCAGON FOR INJ 1 MG VIAL (J1610) SC (12:30)
[2018-01-31] MEDS ORDERED: GLUCOSE 4 GM CHEW TABLET PO (12:30)
[2018-01-31] MEDS: VASOPRESSIN INJ 20 UNITS in NS 499 ML IV (13:00)
[2018-01-31] MEDS ORDERED: HYDROCORTISONE 100 MG/2 ML VIAL (J1720) IV ×2 (13:00→21:00)
[2018-01-31] MEDS ORDERED: VASOPRESSIN INJ 20 UNITS/ML VIAL As Ordered (13:14)
[2018-01-31] MEDS ORDERED: PHYTONADIONE 10MG/ML INJECTION (J3430) SC (13:15)
[2018-01-31] MEDS: VASOPRESSIN INJ 20 UNITS in NS 500 ML IV (13:15)
[2018-01-31] MEDS ORDERED: VASOPRESSIN INJ 20 UNITS in NS 499 ML IV (13:25)
[2018-01-31 13:50] LABS: ABG BASE EXCESS -11.7 (-2.0-2.0); ABG HCO3 13.7 MEQ/L (22.0-26.0); ABG O2 SATURATION 87.2 % (95.0-99.0); ABG PARTIAL PRESSURE O2 64.3 mmHg (75.0-100.0); ABG STANDARD HCO3 15.1 MEQ/L (22.0-26.0); ABG TOTAL CO2 14.6 MEQ/L (22.0-29.0); ABG pH (ARTERIAL) 7.278 UNITS (7.350-7.450)
[2018-01-31] MEDS ORDERED: PIPERACILLIN/TAZOBACTAM SOD 2.25 GM in D5W MINI-BAG PLUS 50 ML IV (14:00)
[2018-01-31 14:09] LABS: TYPE AND SCREEN 1
[2018-01-31] MEDS ORDERED: SUCCINYLCHOLINE 100 MG/5 ML SYRINGE (J0330) (14:29)
[2018-01-31] MEDS ORDERED: ETOMIDATE INJ 20MG/10ML VIAL (14:29)
[2018-01-31 14:30] LABS: HEMATOCRIT 37.1 % (42.0-52.0); HEMOGLOBIN 11.9 g/dl (13.5-17.5)
[2018-01-31 14:41] LABS: CK-MB VALUE MASS 13.2 NG/ML (<3.6); CPK CREATINE PHOSPHOKINASE 195 U/L (39-308); MB/CK RELATIVE INDEX 6.76 (< OR =4); TROPONIN I 1.36 NG/ML (< 0.10)
[2018-01-31] MEDS: IPRATROPIUM 0.5MG/ALBUTEROL 2.5MG INH SOL UD 3ML (DUONEB)(J7620) NEB ×3 (14:42→21:07)
[2018-01-31] MEDS: DOPamine HCL 400 MG in APPROPRIATE DILUENT 1 EA IV (16:19)
[2018-01-31] MEDS ORDERED: DOPamine 400 MG/500 ML BAG IN D5W (800MCG/ML) (J1265) As Ordered (16:19)
[2018-01-31 16:29] LABS: MIXED BASE EXCESS -15.7; MIXED HCO3 11.9 MEQ/L; MIXED O2 SATURATION 83.8 %; MIXED PARTIAL PRESSURE CO2 34.2 mmHg; MIXED PH 7.159 UNITS; MIXED STANDARD HCO3 12.3 MEQ/L; MIXED TOTAL CO2 12.9 MEQ/L
[2018-01-31] MEDS: HYDROCORTISONE 100 MG/2 ML VIAL (J1720) IV ×2 (16:41→23:12)
[2018-01-31] MEDS: PIPERACILLIN/TAZOBACTAM SOD 2.25 GM in D5W MINI-BAG PLUS 50 ML IV ×2 (16:42→22:04)
[2018-01-31] MEDS: PANTOPRAZOLE 40MG INJ (PROTONIX) (C9113) IV (16:47)
[2018-01-31] MEDS ORDERED: METAL LOCK LOOP XX (17:28)
[2018-01-31] MEDS: VANCOMYCIN HCL 1,000 MG, VIAL MATE ADAPTER 1 EACH in D5W 250 ML IV (17:59)
[2018-01-31 18:10] LABS: LACTIC ACID SEPSIS PROTOCOL 11.1 MMOL/L (0.4-2.0)
[2018-01-31 18:15] LABS: ALBUMIN 2.5 GM/DL (3.2-5.2); ANION GAP 26 MEQ/L (8-16); BLOOD UREA NITROGEN 84 MG/DL (7-18); CALCIUM LEVEL 7.8 MG/DL (8.5-10.1); CARBON DIOXIDE LEVEL 12 MEQ/L (21-32); CHLORIDE LEVEL 101 MEQ/L (98-107); GLOMERULAR FILTRATION RATE 6.1 (>56); GLUCOSE, FASTING 65 MG/DL (70-100); PHOSPHORUS LEVEL 6.3 MG/DL (2.5-4.9); POTASSIUM SERUM 4.3 MEQ/L (3.5-5.1); SODIUM LEVEL 139 MEQ/L (136-145)
[2018-01-31 18:21] LABS: CREATININE FOR GFR 9.42 MG/DL (0.70-1.30)
[2018-01-31] MEDS: DOPamine HCL 800 MG in APPROPRIATE DILUENT 1 EA IV (19:05)
[2018-01-31 19:21] LABS: IONIZED CALCIUM 4.1 MG/DL (4.5-5.3)
[2018-01-31 19:37] LABS: PARTIAL THROMBOPLASTIN TIME 56.2 SECONDS (25.4-37.6)
[2018-01-31 20:21] LABS: BEDSIDE GLUCOSE 68 MG/DL (70-105)
[2018-01-31] MEDS: CHLORHEXIDINE ORAL RINSE 0.12%/15ML 120ML BOTTLE MT (21:00)
[2018-01-31 21:16] LABS: ABG BASE EXCESS -19.4 (-2.0-2.0); ABG HCO3 6.8 MEQ/L (22.0-26.0); ABG PARTIAL PRESSURE O2 79.8 mmHg (75.0-100.0); ABG STANDARD HCO3 10.3 MEQ/L (22.0-26.0); ABG TOTAL CO2 7.4 MEQ/L (22.0-29.0)
[2018-01-31 21:19] LABS: ABG pH (ARTERIAL) 7.179 UNITS (7.350-7.450)
[2018-01-31 21:20] LABS: ABG PARTIAL PRESSURE CO2 18.8 mmHg (35.0-45.0)
[2018-01-31] MEDS ORDERED: VANCOMYCIN INTERMITTENT/PULSE DOSING BY CLINICAL PHARMACIST PER DOSING PROTOCOL XX (22:00)
[2018-01-31] MEDS ORDERED: HEPARIN 1,000 UNITS/ML 10ML VIAL (FOR RADIOLOGY& DIALYSIS ONLY) IV (22:45)
[2018-01-31] MEDS: CALCIUM GLUCONATE 1,000 MG in NS 100 ML IV (23:12)
[2018-01-31] MEDS ORDERED: SODIUM CHLORIDE 0.9% INJ 10 ML SYR IV (23:45)
[2018-02-01] MEDS: HumaLOG INSULIN (NovoLOG) PER UNIT SC
[2018-02-01] MEDS: VASOPRESSIN INJ 20 UNITS in NS 499 ML IV (00:09)
[2018-02-01] MEDS: CALCIUM GLUCONATE 1,000 MG in NS 100 ML IV (00:09)
[2018-02-01 00:22] LABS: BEDSIDE GLUCOSE 35 MG/DL (70-105)
[2018-02-01] MEDS: DEXTROSE 50% 50 ML SYRINGE IV ×2 (00:23→00:47)
[2018-02-01 00:48] LABS: BEDSIDE GLUCOSE 44 MG/DL (70-105)
[2018-02-01 01:12] LABS: HEMATOCRIT 40.4 % (42.0-52.0); MEAN CORPUSCULAR HGB CONC 29.7 g/dl (32.0-36.5); MEAN CORPUSCULAR VOLUME 97.6 fl (80.0-96.0); PLATELET COUNT, AUTOMATED 210 10^3/uL (150-450); RED BLOOD COUNT 4.14 10^6/uL (4.30-6.10); RED CELL DISTRIBUTION WIDTH 17.1 % (11.5-14.5); WHITE BLOOD COUNT 19.6 10^3/uL (4.0-10.0)
[2018-02-01 01:12] LABS: IONIZED CALCIUM 3.8 MG/DL (4.5-5.3)
[2018-02-01 01:40] LABS: ANION GAP 29 MEQ/L (8-16); BLOOD UREA NITROGEN 70 MG/DL (7-18); CARBON DIOXIDE LEVEL 8 MEQ/L (21-32); CHLORIDE LEVEL 100 MEQ/L (98-107); GLOMERULAR FILTRATION RATE 7.6 (>56); GLUCOSE, FASTING 95 MG/DL (70-100); MAGNESIUM LEVEL 2.3 MG/DL (1.8-2.4); PHOSPHORUS LEVEL 8.4 MG/DL (2.5-4.9); SODIUM LEVEL 137 MEQ/L (136-145)
[2018-02-01 01:45] LABS: PARTIAL THROMBOPLASTIN TIME 63.9 SECONDS (25.4-37.6)
[2018-02-01 01:49] LABS: POTASSIUM SERUM 5.5 MEQ/L (3.5-5.1)
[2018-02-01 02:14] LABS: BEDSIDE GLUCOSE 36 MG/DL (70-105)
[2018-02-01] MEDS ORDERED: EPINEPHrine 1MG/10ML SYRINGE 1.5IN (05:24)
[2018-02-01] MEDS ORDERED: CALCIUM CHLORIDE 10% 1 GM/10 ML SYR (05:24)
[2018-02-01] MEDS ORDERED: DEXTROSE 50% 50 ML SYRINGE (05:24)
[2018-02-01] MEDS ORDERED: SODIUM BICARBONATE 8.4% INJ 50 ML SYRINGE (05:24)
== END 2018-02-01 05:25 | disposition expired | DRG 208 ==
LOC: M ED 08:37 → M ED INP 12:09 → M ICU 13:50
PROVIDERS: Internal Medicine Pulmonary Disease
PROC: 5A1935Z Respiratory Ventilation, Less than 24 Consecutive Hours (ICD-10-PCS; principal; 2018-01-31)
PROC: 02HV33Z Insertion of Infusion Device into Superior Vena Cava, Percutaneous Approach (ICD-10-PCS; 2018-01-31)
PROC: 0BH17EZ Insertion of Endotracheal Airway into Trachea, Via Natural or Artificial Opening (ICD-10-PCS; 2018-01-31)
PROC: 30233K1 Transfusion of Nonautologous Frozen Plasma into Peripheral Vein, Percutaneous Approach (ICD-10-PCS; 2018-01-31)
DX: J96.00 Acute respiratory failure, unspecified whether with hypoxia or hypercapnia (principal); A41.9 Sepsis, unspecified organism; R65.21 Severe sepsis with septic shock; N18.6 End stage renal disease; J18.9 Pneumonia, unspecified organism; I21.4 Non-ST elevation (NSTEMI) myocardial infarction; K72.00 Acute and subacute hepatic failure without coma; E87.2 Acidosis; N02.8 Recurrent and persistent hematuria with other morphologic changes; I50.32 Chronic diastolic (congestive) heart failure; N25.81 Secondary hyperparathyroidism of renal origin; I13.2 Hypertensive heart and chronic kidney disease with heart failure and with stage 5 chronic kidney disease, or end stage renal disease; R18.8 Other ascites; I27.20 Pulmonary hypertension, unspecified; M10.30 Gout due to renal impairment, unspecified site; E87.5 Hyperkalemia; I48.2 Chronic atrial fibrillation; E16.2 Hypoglycemia, unspecified; I25.10 Atherosclerotic heart disease of native coronary artery without angina pectoris; Z95.5 Presence of coronary angioplasty implant and graft; Z99.2 Dependence on renal dialysis; Z88.8 Allergy status to other drugs, medicaments and biological substances; Z79.52 Long term (current) use of systemic steroids; Y95 Nosocomial condition; Z79.01 Long term (current) use of anticoagulants